=== PATIENT | male | born 1960 | race Caucasian/White ===

== ENCOUNTER 2019-08-08 12:25 | Emergency (ER) | payer SELFPAY ==
[2019-08-08 13:04] LABS: #Basophils 0.1 thou/uL (0.0-0.2); #Eosinphils 0.3 thou/uL (0.0-0.7); #Lymphocytes 1.4 thou/uL (1.20-3.40); #Monocytes 0.5 thou/uL (0.11-0.59); #Neutrophils 3.8 thou/uL (1.40-6.50); %Eosinophils 5.3 % (0.0-10.0); %Lymphocytes 22.9 % (21.0-51.0); %Monocytes 7.5 % (0.0-10.0); %Neutrophils 63.4 % (42.0-75.0); Hemoglobin 13.5 g/dL (14.0-18.0); Mean Corpuscular HGB CONC 35.3 g/dL (32.0-36.0); Mean Corpuscular Hemoglobin 34.3 pg (27.0-31.0); Mean Corpuscular Volume 97.3 fL (78.0-98.0); Mean Platelet Volume 7.5 fL (7.4-10.4); Platelet Count 191 thou/uL (130-400); RBC Distribution Width 11.2 % (11.5-14.5); Red Blood Cell (RBC) Count 3.95 mill/uL (4.70-6.10); White Blood Cell (WBC) Count 5.9 thou/uL (4.8-10.8)
--- NOTE | 2019-08-08 13:22 | RAD ---
RADIOGRAPH CHEST 1 VIEW: DATE: 08/08/2019 HISTORY: 59-year-old male with chest pain and dyspnea after discharge of pacemaker. FINDINGS: There are no airspace densities, pulmonary edema, pneumothorax, or cardiomegaly. The lateral costophr enic angles are sharp. Left subclavian dual lead pacemaker. IMPRESSION: 1. No acute cardiopulmonary findings. 2. Pacemaker.
[2019-08-08 13:25] LABS: ALT (SGPT) 8 U/L (8-55); AST (SGOT) 14 U/L (5-34); Albumin 4.1 g/dL (3.5-5.0); Alkaline Phosphatase 77 U/L (40-110); Anion Gap 11 mmol/L (10-20); BUN (Urea Nitrogen) 14 mg/dL (8.4-25.7); Bilirubin, Total 0.7 mg/dL (0.2-1.2); CK (CPK) 49 U/L (30-200); Calc. Creatinine Clearance 0 mL/min (70-130); Calcium 9.1 mg/dL (7.8-10.44); Carbon Dioxide 26 mmol/L (22-29); Chloride 107 mmol/L (98-107); Estimated GFR-MDRD Greater than 90; Globulin 2.5 g/dL (2.4-3.5); Glucose 92 mg/dL (70-105); Lipase 26 U/L (8-78); Potassium 3.9 mmol/L (3.5-5.1); Protein, Total 6.6 g/dL (6.0-8.3); Sodium 140 mmol/L (136-145)
== END 2019-08-08 17:16 | disposition home or self-care (01) ==
LOC: ERS 12:25
DX: R07.9 Chest pain, unspecified (principal); E11.9 Type 2 diabetes mellitus without complications
CPT/HCPCS: 36415; 71045; 80053; 82550; 83690; 84484; 85025; 93005

== ENCOUNTER 2020-10-24 22:26 | Emergency (ER) | payer SELFPAY ==
--- NOTE | 2020-10-24 23:58 | CT ---
Exam: Head CT without contrast HISTORY: Fall. Pain. Trauma. COMPARISON: none FINDINGS: Hemorrhage: No intraparenchymal hemorrhage or extra-axial hematoma. Brain parenchyma: Cortical chua-white matter differentiation is preserved. No mass effect or midline shift. Basilar cisterns are patent. Ventricular system: Ventricles and sulci are patent and symmetric. Calvarium: Intact. Sinuses and mastoid air cells: Mucosal thickening of the paranasal sinuses. Old left lamina propecia fracture. Adequate aeration of the mastoid air cells Additional findings: Left facial hematoma. Refer to separate face CT report for further detail IMPRESSION: No intracranial post traumatic sequelae.
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
== END 2020-10-25 01:36 | disposition home or self-care (01) ==
LOC: ERS 22:26
DX: S00.93XA Contusion of unspecified part of head, initial encounter (principal); E11.9 Type 2 diabetes mellitus without complications; W01.0XXA Fall on same level from slipping, tripping and stumbling without subsequent striking against object, initial encounter
CPT/HCPCS: 70450; 70486

== ENCOUNTER 2020-10-26 13:11 | Emergency (ER) | payer SELFPAY ==
[~2020-10-26 13:11] MED LIST: Iopamidol-370 76% 500 ML 1 ML ONE
[2020-10-26 14:21] LABS: #Eosinphils 0.2 thou/uL (0.0-0.7); #Lymphocytes 1.5 thou/uL (1.20-3.40); #Monocytes 0.6 thou/uL (0.11-0.59); #Neutrophils 4.5 thou/uL (1.40-6.50); %Basophils 0.3 % (0.0-1.0); %Eosinophils 3.1 % (0.0-10.0); %Lymphocytes 21.8 % (21.0-51.0); %Monocytes 8.4 % (0.0-10.0); %Neutrophils 66.4 % (42.0-75.0); Hemoglobin 12.1 g/dL (14.0-18.0); Mean Corpuscular HGB CONC 33.5 g/dL (32.0-36.0); Mean Corpuscular Hemoglobin 33.3 pg (27.0-31.0); Mean Corpuscular Volume 99.4 fL (78.0-98.0); Mean Platelet Volume 8.4 fL (7.4-10.4); Platelet Count 184 thou/uL (130-400); RBC Distribution Width 11.4 % (11.5-14.5); Red Blood Cell (RBC) Count 3.62 mill/uL (4.70-6.10); White Blood Cell (WBC) Count 6.8 thou/uL (4.8-10.8)
[2020-10-26 14:26] LABS: INR-International Normal Ratio 1.1; PTT 25.6 sec (22.9-36.1); Prothrombin Time 14.4 sec (12.0-14.7)
[2020-10-26] MEDS ORDERED: Boostrix 0.5 ML (Tdap) VIAL ONE (14:30)
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
--- NOTE | 2020-10-26 15:15 | CT ---
EXAM: CT facial bones PROVIDED CLINICAL HISTORY: Trauma. Pain. COMPARISON: 10/24/2020 FINDINGS: Visualized intracranial contents: Intact. Orbits: Intact. Cervical spine: Intact. Soft tissues: There is stable left periorbital and facial soft tissue swelling/hematoma. Bones: Nasal bones: Intact. Maxilla: Intact. Mandible: Intact. Zygomatic arches: Intact. Pterygoid plates: Intact. Orbital rims: Intact. Orbital wall and floor: Intact. Frontal skull: Intact. Paranasal sinuses: Stable mucosal thickening of the paranasal sinuses. Stable chronic fracture involv ing the medial left orbital wall Coronal images: Bilateral ostiomeatal complexes are patent. Nasal septum is intact. IMPRESSION: 1. No acute maxillofacial fracture 2. Stable posttraumatic changes involving the left facial soft tissues.
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
[2020-10-26 15:23] LABS: Chloride 107 mmol/L (98-107); Potassium 4.4 mmol/L (3.5-5.1); Sodium 143 mmol/L (136-145)
[2020-10-26 15:24] LABS: Calcium 8.8 mg/dL (7.8-10.44)
[2020-10-26 15:25] LABS: Glucose 104 mg/dL (70-105)
[2020-10-26 15:26] LABS: Anion Gap 14 mmol/L (10-20); Carbon Dioxide 26 mmol/L (22-29)
[2020-10-26 15:27] LABS: Alkaline Phosphatase 69 U/L (40-110); Bilirubin, Total 0.9 mg/dL (0.2-1.2)
[2020-10-26 15:28] LABS: Calc. Creatinine Clearance 0 mL/min (70-130)
[2020-10-26 15:29] LABS: BUN (Urea Nitrogen) 44 mg/dL (8.4-25.7)
[2020-10-26 15:30] LABS: ALT (SGPT) 20 U/L (8-55); AST (SGOT) 48 U/L (5-34)
--- NOTE | 2020-10-26 15:54 | CT ---
Exam: CT cervical spine without contrast HISTORY: Trauma. Pain. COMPARISON: None FINDINGS: No craniocervical dissociation. Appropriate alignment of the lateral masses of C1 and C2. Intact odon toid process Appropriate alignment of the facets. Soft tissue neck structures: No mass, lymphadenopathy or hematoma. No prevertebral soft tissue swelli ng. Upper mediastinum and lung apices: Unremarkable Central spinal canal: Neural foramina and central spinal canal are patent. Vacuum disc phenomenon at C5-C6. Prominent anterior osteophyte at C5-C6 is identified. There are varying degrees of central canal stenosis and foraminal narrowing on the basis of change. Evaluation is limited by technique Vertebral bodies: Cervical spine vertebral body height is maintained. No fracture. IMPRESSION: 1. No cervical spine fracture.
--- NOTE | 2020-10-30 15:39 | EKG ---
Test Reason : Blood Pressure : / mmHG Vent. Rate : 070 BPM Atrial Rate : 070 BPM P-R Int : 174 ms QRS Dur : 100 ms QT Int : 444 ms P-R-T Axes : 011 021 041 degrees QTc Int : 479 ms Atrial-paced rhythm Abnormal ECG Confirmed by MATTEO TIPTON DO ([id number]), editor producer SHAHANA WARE ([id number]) on 10/30/2020 3:38:51 PM Referred By: Confirmed By:MATTEO TIPTON DO
== END 2020-10-26 16:29 | disposition home or self-care (01) ==
LOC: ERS 13:11
DX: S00.83XA Contusion of other part of head, initial encounter (principal); E11.9 Type 2 diabetes mellitus without complications; Z86.73 Personal history of transient ischemic attack (TIA), and cerebral infarction without residual deficits; V09.9XXA Pedestrian injured in unspecified transport accident, initial encounter
CPT/HCPCS: 70450; 70486; 71260; 72125; 74177; 80053; 85025; 85610; 85730; 90471; 90715; 93005; Q9967

== ENCOUNTER 2021-01-13 08:41 | Emergency (ER) | payer SELFPAY | END 2021-01-13 09:54 | disposition home or self-care (01) | LOC: ERS 08:41 | DX: K08.89 Other specified disorders of teeth and supporting structures (principal); R41.82 Altered mental status, unspecified; E11.9 Type 2 diabetes mellitus without complications; Z86.73 Personal history of transient ischemic attack (TIA), and cerebral infarction without residual deficits | CPT/HCPCS: 93005 ==

== ENCOUNTER 2021-09-01 19:27 | Inpatient (IN) | payer MEDICARE, MEDICAID ==
[2021-09-01] MEDS ORDERED: HumaLOG 300 UNITS/3 ML VIAL SC PRN ×2 (23:11)
[2021-09-01] MEDS ORDERED: Dextrose 5% in Water 1,000 ML IV PRN (23:11)
[2021-09-01] MEDS ORDERED: Acetaminophen 325 MG TAB PO PRN (23:11)
[2021-09-01] MEDS ORDERED: Dextrose 50% Abboject 50 ML SYRINGE SLOW IVP PRN (23:11)
[2021-09-01] MEDS ORDERED: Ondansetron ODT 4 MG TAB PO PRN (23:11)
[2021-09-01] MEDS ORDERED: Ondansetron PF 4 MG/2 ML Vial IVP PRN (23:11)
[2021-09-02 00:57] VITALS: BMI 28.2
[2021-09-02] MEDS ORDERED: Aspirin 325 mg Enteric Coated Tablet PO SCH (01:30)
[2021-09-02 05:48] LABS: #Basophils 0.1 thou/uL (0.0-0.2); #Eosinphils 0.7 thou/uL (0.0-0.7); #Monocytes 0.6 thou/uL (0.11-0.59); #Neutrophils 2.2 thou/uL (1.40-6.50); %Basophils 1.3 % (0.0-1.0); %Eosinophils 11.9 % (0.0-10.0); %Lymphocytes 36.5 % (21.0-51.0); %Monocytes 10.7 % (0.0-10.0); %Neutrophils 39.6 % (42.0-75.0); Hemoglobin 12.7 g/dL (14.0-18.0); Mean Corpuscular HGB CONC 35.2 g/dL (32.0-36.0); Mean Corpuscular Hemoglobin 34.7 pg (27.0-31.0); Mean Corpuscular Volume 98.4 fL (78.0-98.0); Mean Platelet Volume 7.9 fL (7.4-10.4); Platelet Count 146 thou/uL (130-400); RBC Distribution Width 10.8 % (11.5-14.5); Red Blood Cell (RBC) Count 3.66 mill/uL (4.70-6.10); White Blood Cell (WBC) Count 5.6 thou/uL (4.8-10.8)
[2021-09-02 06:15] LABS: Anion Gap 9 mmol/L (10-20); BUN (Urea Nitrogen) 15 mg/dL (8.4-25.7); Calc. Creatinine Clearance 134 mL/min (70-130); Calcium 9.5 mg/dL (7.8-10.44); Carbon Dioxide 28 mmol/L (22-29); Cardiac Risk 2.6 (Less than 4.5); Chloride 107 mmol/L (98-107); Cholesterol 102 mg/dl (< 200 Desired); Glucose 83 mg/dL (70-105); HDL Cholesterol 40 mg/dL (>60 Neg Risk); LDL Cholesterol, Calculated 48 mg/dL; Potassium 3.8 mmol/L (3.5-5.1); Sodium 140 mmol/L (136-145); Triglycerides 68 mg/dL (Less than 150)
[2021-09-02] MEDS: Enoxaparin Sodium 40 MG/0.4 ML SYRINGE SC SCH (09:24)
[2021-09-02] MEDS: MULTIVIT/IRON SULF/FOLIC ACID 1 EACH TAB PO SCH (09:25)
[2021-09-02] MEDS ORDERED: Atorvastatin Calcium 40 MG TAB PO SCH (21:00)
[2021-09-02] MEDS: Atorvastatin Calcium 40 MG TAB PO SCH (22:45)
[2021-09-03] MEDS: Aspirin Chewable 81 MG TAB PO SCH (08:57)
[2021-09-03] MEDS: Tamsulosin HCl 0.4 MG CAP PO SCH (08:57)
[2021-09-03] MEDS: Enoxaparin Sodium 40 MG/0.4 ML SYRINGE SC SCH (08:57)
[2021-09-03] MEDS: MULTIVIT/IRON SULF/FOLIC ACID 1 EACH TAB PO SCH (08:57)
[2021-09-03] MEDS: Atorvastatin Calcium 40 MG TAB PO SCH (20:07)
[2021-09-04] MEDS: Aspirin Chewable 81 MG TAB PO SCH (08:39)
[2021-09-04] MEDS: Tamsulosin HCl 0.4 MG CAP PO SCH (08:39)
[2021-09-04] MEDS: Enoxaparin Sodium 40 MG/0.4 ML SYRINGE SC SCH (08:40)
[2021-09-04] MEDS: MULTIVIT/IRON SULF/FOLIC ACID 1 EACH TAB PO SCH (08:40)
[2021-09-04 11:45] VITALS: BP 116/78; TEMP 98
== END 2021-09-04 13:45 | disposition home or self-care (01) | DRG 93 ==
LOC: NEURO 19:27 → OBSVTOIN 09-03 11:44
PROVIDERS: ADMIT Student in an Organized Health Care Education/Training Program; ATTEND Student in an Organized Health Care Education/Training Program
DX: R47.1 Dysarthria and anarthria (principal); Z20.822 Contact with and (suspected) exposure to COVID-19; G24.9 Dystonia, unspecified; F03.90 Unspecified dementia, unspecified severity, without behavioral disturbance, psychotic disturbance, mood disturbance, and anxiety; R27.8 Other lack of coordination; E78.5 Hyperlipidemia, unspecified; E11.9 Type 2 diabetes mellitus without complications; N40.0 Benign prostatic hyperplasia without lower urinary tract symptoms; D53.9 Nutritional anemia, unspecified; Z86.73 Personal history of transient ischemic attack (TIA), and cerebral infarction without residual deficits; Z95.0 Presence of cardiac pacemaker; Z82.49 Family history of ischemic heart disease and other diseases of the circulatory system; Z82.0 Family history of epilepsy and other diseases of the nervous system; Z79.899 Other long term (current) drug therapy; Z79.82 Long term (current) use of aspirin
CPT/HCPCS: 36415; 36416; 70450; 80048; 80061; 83036; 84443; 85025; J1650